=== PATIENT | male | born 1960 | race Caucasian/White ===

== ENCOUNTER 2018-12-04 05:32 | Observation (INO) | payer BC ==
[2018-12-04] MEDS ORDERED: GELATIN SIZE 100 SPONGE (07:26)
[2018-12-04] MEDS ORDERED: EPHEDrine 25 MG/5 ML SYG (07:36)
[2018-12-04] MEDS ORDERED: LIDOCAINE 2% (SDV) 5 ML INJ (07:37)
[2018-12-04] MEDS ORDERED: SUCCINYLCHOLINE CHLORIDE 100 MG/5 ML SYG IV (07:37)
[2018-12-04] MEDS ORDERED: ROCURONIUM 50 MG INJ ×2 (07:37→08:36)
[2018-12-04] MEDS ORDERED: MIDAZOLAM 1 MG/ML 2 ML INJ (07:37)
[2018-12-04] MEDS ORDERED: PROPOFOL 20 ML ×2 (07:37→07:54)
[2018-12-04] MEDS ORDERED: CEFAZOLIN 1 GM INJ (07:54)
[2018-12-04] MEDS ORDERED: FAMOTIDINE 20 MG INJ (08:01)
[2018-12-04] MEDS ORDERED: ONDANSETRON 4 MG INJ ×2 (08:01→11:08)
[2018-12-04] MEDS ORDERED: DEXAMETHASONE 4 MG/ML 5 ML INJ (08:01)
[2018-12-04] MEDS: THROMBIN 5000 UNIT (RECOTHROM) VIAL (08:28)
[2018-12-04] MEDS: BUPIVACAINE 0.25%/EPI (SDV) 10 ML INJ (08:28)
[2018-12-04] MEDS: HEMOSTATIC MATRIX SYG ZFS (08:28)
[2018-12-04] MEDS ORDERED: LABETALOL HCL 20MG INJ (08:37)
[2018-12-04] MEDS: POLYMYXIN/BACITRACIN 1L IRRIG (08:56)
[2018-12-04] MEDS ORDERED: FENTAnyl 50 MCG/ML VIAL IV (10:30)
[2018-12-04] MEDS ORDERED: DIPHENHYDRAMINE 50 MG INJ IV (10:30)
[2018-12-04] MEDS ORDERED: HYDROmorphONE 1 MG/5 ML IV SYRINGE IV ×3 (10:30)
[2018-12-04] MEDS ORDERED: PROCHLORPERAZINE 10 MG INJ IV (10:30)
[2018-12-04] MEDS ORDERED: NACL 0.9% 3 ML SYG IV (11:00)
[2018-12-04] MEDS ORDERED: ACETAMINOPHEN 325 MG TAB PO (11:00)
[2018-12-04] MEDS ORDERED: NALOXONE (0.4 MG/ML) INJ IV (11:00)
[2018-12-04] MEDS ORDERED: AL HYDROX/MG HYDROX/SIMETH 30 ML CUP PO (11:00)
[2018-12-04] MEDS ORDERED: HYDROmorphONE 0.2 MG/ML PCA (11:01)
[2018-12-04] MEDS ORDERED: FENTAnyl 50 MCG/ML VIAL (11:08)
[2018-12-04] MEDS ORDERED: MEPERIDINE 25 MG INJ (11:08)
[2018-12-04] MEDS: ONDANSETRON 4 MG INJ IV (11:20)
[2018-12-04] MEDS: FENTAnyl 50 MCG/ML VIAL IV ×2 (11:21→14:12)
[2018-12-04] MEDS: MEPERIDINE 25 MG INJ IV ×2 (11:21→14:12)
[2018-12-04] MEDS: HYDROmorphONE 0.2 MG/ML PCA IV ×2 (11:32→17:19)
[2018-12-04] MEDS ORDERED: CEFAZOLIN 1 GM/50 ML (PMX) 50 ML IVPB (12:00)
[2018-12-04] MEDS: CEFAZOLIN 1 GM/50 ML (PMX) 50 ML IVPB ×2 (14:35→20:07)
[2018-12-04] MEDS: SOD CHLORIDE 0.45% 1,000 ML IV (14:38)
[2018-12-05] MEDS: SOD CHLORIDE 0.45% 1,000 ML IV ×2 (01:04→10:00)
[2018-12-05] MEDS: CEFAZOLIN 1 GM/50 ML (PMX) 50 ML IVPB ×2 (01:09→06:14)
[2018-12-05] MEDS ORDERED: HYDROCODONE/APAP (5/325) TAB PO (08:00)
[2018-12-05] MEDS: DEXAMETHASONE 10 MG/ML 1 ML INJ IV (08:21)
[2018-12-05] MEDS: DOCUSATE SODIUM 100 MG CAP PO (08:21)
[2018-12-05] MEDS: HYDROCODONE/APAP (5/325) TAB PO ×4 (08:22→18:44)
== END 2018-12-05 19:02 | disposition home or self-care (01) ==
LOC: SDS 05:32 → REC 11:18 → MS1 11:42
DX: M51.16 Intervertebral disc disorders with radiculopathy, lumbar region (principal); E78.5 Hyperlipidemia, unspecified; K21.9 Gastro-esophageal reflux disease without esophagitis
CPT/HCPCS: 22856; 72050; 80048; 85014; 85018; 88304; 88311; 96361; 96365; 96366; 96374; 97116; 97161; 97530; 99217